=== PATIENT | female | born 1995 | race African-American/Black ===

== ENCOUNTER 2019-04-08 10:46 | Emergency (ER) | payer OTHER, SELFPAY ==
[2019-04-08 10:55] VITALS: BP 133/79; PULSE 84; RESP 14; TEMP 36.4; O2SAT 100; BMI 30.7
[2019-04-08] MEDS: ONDANSETRON 4 MG ODT PO (11:07)
[2019-04-08 11:40] LABS: Influenza A - CEPHEID Flu A NEGATIVE (NEGATIVE); Influenza B - CEPHEID Flu B NEGATIVE (NEGATIVE)
--- NOTE | 2019-04-08 20:13 | ED.URI ---
HPI - URI/Sore Throat <FLACO Lugo - Last Filed: 04/08/19 20:28> General Chief Complaint: Upper Respiratory Symptoms Stated Complaint: having diarrhea , Chest Congestion Time Seen by Provider: 04/08/19 12:51 Source: patient Mode of arrival: Ambulatory Limitations: no limitations History of Present Illness HPI Narrative: The patient is a 21-year-old female nonsmoker with a chief complaint of cold for several days. She has a 3 day history of flu-like symptoms, denies vomiting or diarrhea, complains of slight nausea. Complains of low-grade fevers as well as nasal congestion and ear pressure. She also complains of sore throat. She states that she has a cough, that is nonproductive or occasionally productive. Denies chest pain or shortness of breath. Has not taken anything at home to feel better. States that she has had several loose stools but is unable to give a sample in the emergency department Related Data Previous Rx's Medication Instructions Recorded ondansetron 4 mg PO Q6H PRN #14 tab 04/08/19 Allergies Allergy/AdvReac Type Severity Reaction Status Date / Time No Known Drug Allergies Allergy Verified 04/08/19 10:58 Review of Systems <FLACO Lugo - Last Filed: 04/08/19 20:28> Review of Systems Narrative: GENERAL: See HPI HEENT: See HPI RESPIRATORY: See HPI CARDIOVASCULAR: Denies chest pain, palpitations, orthopnea, edema, GASTROINTESTINAL: See HPI : Denies dysuria, frequency, incontinence, hematuria, urinary retention. MUSCULOSKELETAL: denies weakness, joint pain, or bony pain SKIN: Denies rash, skin lesions, or other NEUROLOGIC: Denies weakness, headache, numbness, change in speech, confusion, seizures, incoordination. PSYCHIATRIC: No concerning psychosocial issues. 12 point review of systems is negative except for those stated above Patient History <FLACO Lugo - Last Filed: 04/08/19 20:28> Social History Smoking Status: Current every day smoker Smoking Status: Current every day smoker alcohol intake frequency: 0-2 drinks per day Substance Use Type: does not use Exam <FLACO Lugo - Last Filed: 04/08/19 20:28> Narrative Exam Narrative: GENERAL: This is a well-nourished, well-developed patient, in no acute distress HEAD: Atraumatic. Normocephalic. No temporal or scalp tenderness. EYES: Pupils equal round and reactive. Extraocular motions intact. No scleral icterus. No injection or drainage. ENT: Nose without bleeding, purulent drainage or septal hematoma. Throat without erythema, tonsillar hypertrophy or exudate. Uvula midline. Airway patent. Bilateral TMs pearly riggins. NECK: Trachea midline. No JVD or lymphadenopathy. Supple, nontender, no meningeal signs. CARDIOVASCULAR: Regular rate and rhythm without murmurs, gallops, or rubs. RESPIRATORY: Clear to auscultation. Breath sounds equal bilaterally. No wheezes, rales, or rhonchi. His ultrasound cough. Speaking full sentences. GASTROINTESTINAL: Abdomen soft, non-tender, nondistended. No hepato-splenomegaly, or palpable masses. No guarding. Active bowel sounds all 4 quadrants EXTREMITIES: No clubbing, cyanosis, or edema. No joint tenderness, effusion, or edema noted. BACK: Nontender without deformity or crepitance. No flank tenderness. NEURO: AOx3. Interactive. Age appropriate. SKIN: No rash or erythema onVisible skin Initial Vital Signs Initial Vital Signs: Vital Signs Temperature 97.6 F 04/08/19 10:55 Pulse Rate 84 04/08/19 10:55 Respiratory Rate 14 04/08/19 10:55 Blood Pressure 133/79 04/08/19 10:55 Pulse Oximetry 100 04/08/19 10:55 <Susan Ansari DO - Last Filed: 04/20/19 18:34> Initial Vital Signs Initial Vital Signs: Vital Signs Temperature 97.6 F 04/08/19 10:55 Pulse Rate 84 04/08/19 10:55 Respiratory Rate 14 04/08/19 10:55 Blood Pressure 133/79 04/08/19 10:55 Pulse Oximetry 100 04/08/19 10:55 Course <FLACO Lugo - Last Filed: 04/08/19 20:28> Orders Ordered: Discontinued Medications Ondansetron HCl (Zofran Odt) 4 mg PO NOW ONE Stop: 04/08/19 11:05 Last Admin: 04/08/19 11:07 Dose: 4 mg Documented by: PRANAV <Susan Ansari DO - Last Filed: 04/20/19 18:34> Orders Ordered: Discontinued Medications Ondansetron HCl (Zofran Odt) 4 mg PO NOW ONE Stop: 04/08/19 11:05 Last Admin: 04/08/19 11:07 Dose: 4 mg Documented by: PRANAV MDM - URI/Sore Throat <JACK uLgoBC - Last Filed: 04/08/19 20:28> Lab Data Labs: Lab Results 04/08/19 Range/Units 11:00 Influenza A (RT-PCR) Flu a negative (NEGATIVE) Influenza B (RT-PCR) Flu b negative (NEGATIVE) Point of Care Testing Test Results Negative Rapid Strep A Negative Urine Dip Bedside Urine Glucose Negative Bedside Urine Bilirubin - Negative Bedside Urine Ketone - Negative Urine Specific [place] 1.015 Bedside Urine Occult Blood - Negative Bedside Urine pH 6.0 Bedside Urine Protein - Negative Bedside Urine Urobilinogen - Negative Bedside Urine Nitrite - Negative Bedside Urine Leukocytes - Negative Esterase MDM Narrative Medical decision making narrative: The patient is 21-year-old female who presents with 3 day history of congestion, fevers etcetera. She is negative for flu. Her strep is negative. Throat cultures pending at this time. I discussed at length use of [id number] remedies for symptom control. Encourage PCP follow-up in the next few days. Discussed coming back to the ER for any acute concerns. Patient did feel better with the Zofran, so I did send her prescription in. Work note given. Patient has no questions or concerns upon discharge and states understanding of return precautions as well as follow-up care. <Susan Ansari DO - Last Filed: 04/20/19 18:34> Lab Data Labs: Lab Results 04/08/19 Range/Units 11:00 Influenza A (RT-PCR) Flu a negative (NEGATIVE) Influenza B (RT-PCR) Flu b negative (NEGATIVE) Point of Care Testing Test Results Negative Rapid Strep A Negative Urine Dip Bedside Urine Glucose Negative Bedside Urine Bilirubin - Negative Bedside Urine Ketone - Negative Urine Specific [place] 1.015 Bedside Urine Occult Blood - Negative Bedside Urine pH 6.0 Bedside Urine Protein - Negative Bedside Urine Urobilinogen - Negative Bedside Urine Nitrite - Negative Bedside Urine Leukocytes - Negative Esterase Discharge Plan Departure Patient Disposition: Home Clinical Impression: Viral infection Discharge Date/Time: 04/08/19 13:35 Instructions: DI for Viral Upper Respiratory Infection -- Adult Activity Restrictions/Additional Instructions: I sent a prescription of antinausea medication to [facility]. Please also use Flonase, Kenan med sinus rinse or Neti pot, Sudafed and other [id number] measures Your flu test came back negative, your strep test came back negative, there is a throat culture pending at this time. If we find bacterial infection on her throat culture we will call in 2-3 days Please follow-up with primary care provider Please come back to the emergency department for any acute concerns such as inability keep down fluids I've given you a work note. Prescriptions: New ondansetron 4 mg tablet,disintegrating 4 mg PO Q6H PRN (Reason: nausea and vomiting) Qty: 14 RF: 0 Referrals: [facility] [Provider Group] Stand Alone Forms: Work Release Note
== END 2019-04-08 13:35 | disposition home or self-care (01) ==
PROVIDERS: Emergency Medicine; Emergency Provider Nurse Practitioner Family
DX: J06.9 Acute upper respiratory infection, unspecified (principal); R11.0 Nausea; F17.200 Nicotine dependence, unspecified, uncomplicated
CPT/HCPCS: 81003; 81025; 87070; 87502; 87880; 99283